=== PATIENT | female | born 1945 | race African-American/Black ===

== ENCOUNTER 2017-11-29 19:07 | Inpatient (IN) ==
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
[2017-11-29 20:08] LABS: Baso % (Auto) 0.7 % (0.0-2.0); Eos # (Auto) 0.1 th/mm3 (0.0-0.4); Eos % (Auto) 1.9 % (0.0-4.0); Hematocrit 45.5 % (35.0-46.0); Hemoglobin 14.8 gm/dL (11.6-15.3); Lymph # (Auto) 1.8 th/mm3 (1.0-4.8); Lymph % (Auto) 39.9 % (9.0-44.0); Mean Corpuscular HGB Conc 32.7 % (32.0-36.0); Mean Corpuscular Hemoglobin 30.2 pg (27.0-34.0); Mean Corpuscular Volume 92.6 fL (80.0-100.0); Mean Platelet Volume 8.5 fL (7.0-11.0); Mono # (Auto) 0.5 th/mm3 (0.0-0.9); Neut # (Auto) 2.1 th/mm3 (1.8-7.7); Neut % (Auto) 46.5 % (16.0-70.0); Platelet Count 141 th/mm3 (150-450); Red Blood Count 4.91 mil/mm3 (4.00-5.30); White Blood Count 4.6 th/mm3 (4.0-11.0)
--- NOTE | 2017-11-29 20:11 | CT ---
EXAM DATE: 11/29/2017 7:55 PM EDT AGE/SEX: 72 years / Female INDICATIONS: Altered mental status. CLINICAL DATA: This is the patient's initial encounter. Patient reports that signs and symptoms have been present for 1 day and indicates a pain score of 0/10. MEDICAL/SURGICAL HISTORY: None. None. RADIATION DOSE: 56.35 CTDI (mGy) COMPARISON: No prior exams available for comparison. TECHNIQUE: CT of the head without contrast. Using automated exposure control and adjustment of the mA and/or kV according to patient size, radiation dose was kept as low as reasonably achievable to ob tain optimal diagnostic quality images. DICOM format image data is available electronically for revi ew and comparison. FINDINGS: Cerebrum: There is mild generalized atrophy and ventricles are normal given the degree of atrophy. M ild periventricular white matter change is present. No midline shift, mass lesion, hemorrhage or acu te infarction. No extraaxial fluid collections are seen. Posterior Fossa: The cerebellum and brainstem demonstrate no acute abnormality. The 4th ventricle is midline. The cerebellopontine angle is within normal limits. Extracranial: The visualized sinuses are clear. Skull: The calvaria is intact. No skull fracture. CONCLUSION: 1. No acute intracranial abnormality is identified. 2. Nonacute findings include mild generalized atrophy and chronic periventricular white matter glynn brnia Electronically signed by: Elpidio Salmeron MD 11/29/2017 8:10 PM EDT
[2017-11-29 20:26] LABS: Albumin 3.8 g/dL (3.4-5.0); Anion Gap 10 meq/L (5-15); Aspartate Aminotransferase 25 U/L (15-37); Blood Urea Nitrogen 22 mg/dL (7-18); Calcium 10.1 mg/dL (8.5-10.1); Carbon Dioxide 27.2 meq/L (21.0-32.0); Chloride 104 meq/L (98-107); Glomerular Filtration Rate 56 mL/min (>89); Glucose,Random 124 mg/dL (74-106); Potassium 3.7 meq/L (3.5-5.1); Sodium 141 meq/L (136-145)
[2017-11-29 20:30] LABS: Bilirubin,Urine Negative (Negative); Clarity,Urine Hazy (Clear); Color,Urine Yellow (Yellw/Straw); Glucose,Urine (UA) Negative (Negative); Leukocyte Esterase,Urine Trace (Negative); Mucus,Urine Few /lpf (Occasional); Nitrite,Urine Negative (Negative); Squamous Epithelial Cell,Urine 2 /hpf (0-5)
[2017-11-29 20:35] LABS: Amphetamine Screen,Urine Neg (Neg); Barbiturate Screen,Urine Neg (Neg); Cannabinoid Screen,Urine Neg (Neg); Cocaine Screen,Urine Neg (Neg)
[2017-11-29 20:37] LABS: Alanine Aminotransferase 38 U/L (10-53); Alkaline Phosphatase 50 U/L (45-117); Total Protein 7.5 g/dL (6.4-8.2)
[2017-11-29 20:46] LABS: Opiate Screen,Urine Neg (Neg)
[2017-11-30] MEDS ORDERED: traZODone 50 MG Tablet PO PRN (07:44)
[2017-11-30] MEDS ORDERED: Aluminum/Magnesium/Simethacone Susp 30 ML UDC PO PRN (07:44)
[2017-11-30] MEDS ORDERED: Haloperidol Inj 5 MG/ML Ampul IM PRN (07:44)
[2017-11-30] MEDS ORDERED: LORazepam 1 MG Tablet PO PRN (07:44)
[2017-11-30] MEDS ORDERED: Senna/Docusate Sodium 8.6/50 MG Tablet PO SCH (09:00)
[2017-12-01 09:37] LABS: Calcium 9.1 mg/dL (8.5-10.1); Carbon Dioxide 27.7 meq/L (21.0-32.0); Chol/HDL Ratio 4.58 Ratio; HDL Cholesterol 53.4 mg/dL (40.0-60.0); Potassium 3.9 meq/L (3.5-5.1)
[2017-12-01] MEDS ORDERED: Acetaminophen 325 MG Tablet PO PRN (11:37)
[2017-12-01] MEDS ORDERED: Aluminum/Magnesium/Simethacone Susp 30 ML UDC PO PRN ×2 (11:37→11:56)
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
[2017-12-01] MEDS: Senna/Docusate Sodium 8.6/50 MG Tablet PO SCH (21:40)
[2017-12-02] MEDS: Senna/Docusate Sodium 8.6/50 MG Tablet PO SCH ×2 (08:29→21:40)
--- NOTE | 2017-12-02 11:57 | P.PNPSY ---
Subjective Remarks: This is a request for second opinion. Admission note was reviewed and I agree with the history. Patient was seen and case was discussed with nursing. Patient remains floridly psychotic. She is very religiously preoccupied and is responding to internal stimuli. She continues with bizarre jerking movements which she says is Ryan directing her to do so. There are no behavioral problems. She is social on the unit eating well Mental Status Examination Appearance: Disheveled Consciousness: Alert Orientation: Person, Place, Date/Time, Situation (Vaguely vaguely) Motor Activity: Other Speech: Pressured, Rapid, Other (Makes occasional grunting type noises) Language: Adequate, Other (Patient does make grunting noises) Fund of Knowledge: Inadequate Attention and Concentration: Easily distracted Memory: Impaired Mood: Angry, Irritable Affect: Other (Decreased range and intensity) Thought Process & Associations: Loose associations Thought Content: Other (Markedly disorganized) Hallucination Type: Auditory Delusion Type: Bizarre Suicidal Ideation: No Suicidal Plan: No Suicidal Intention: No Homicidal Ideation: No Homicidal Plan: No Homicidal Intention: No Insight: Poor Judgment: Poor Assessment and Plan - Assessment (1) Paranoid type schizophrenia, chronic state Code(s): F20.0 - Paranoid schizophrenia Status: Acute (2) Stereotypic movement disorder Code(s): F98.4 - Stereotyped movement disorders Status: Acute - Plan Plan: I agree with the first opinion to continue petition. Criteria include acute psychosis Justification for Continued Inpatient Stay: Patient would decompensate in a less restrictive setting
[2017-12-03] MEDS: Senna/Docusate Sodium 8.6/50 MG Tablet PO SCH ×2 (08:35→20:32)
--- NOTE | 2017-12-03 14:46 | P.PNPSY ---
Subjective Remarks: Patient seen in her room with nurse and medical student Clara, chart reviewed , patient continues noncompliant with medications continue to await [place] court hearing. Patient sitting in chair by window is quite disorganized and confusing statements she is tangential and circumstantial. He continues with the involuntary muscle movement and jerking movements along with the various verbalizations. She is otherwise been no behavioral problem. For now continue treatment Review of Systems All other systems reviewed negative except as stated in HPI Mental Status Examination Appearance: Disheveled Consciousness: Alert Orientation: Person, Place, Date/Time, Situation (Vaguely vaguely) Motor Activity: Other Speech: Pressured, Rapid, Other (Makes occasional grunting type noises) Language: Adequate, Other (Patient does make grunting noises) Fund of Knowledge: Inadequate Attention and Concentration: Easily distracted Memory: Impaired Mood: Angry, Irritable Affect: Other (Decreased range and intensity) Thought Process & Associations: Loose associations Thought Content: Other (Markedly disorganized) Hallucination Type: Auditory Delusion Type: Bizarre Suicidal Ideation: No Suicidal Plan: No Suicidal Intention: No Homicidal Ideation: No Homicidal Plan: No Homicidal Intention: No Insight: Poor Judgment: Poor Assessment and Plan - Assessment (1) Paranoid type schizophrenia, chronic state Code(s): F20.0 - Paranoid schizophrenia Status: Acute (2) Stereotypic movement disorder Code(s): F98.4 - Stereotyped movement disorders Status: Acute - Plan Plan: Patient continues psychotic with marked significant motor movements noted of upper and lower extremities and various barking verbalizations Justification for Continued Inpatient Stay: At this time patient would decompensate a place to a lower level of care Discharge Planning: To be determined
[2017-12-04] MEDS: Senna/Docusate Sodium 8.6/50 MG Tablet PO SCH ×2 (08:26→20:51)
--- NOTE | 2017-12-04 15:48 | P.PNPSY ---
Subjective Remarks: Patient seen in day room with medical saadia Elizabeth patient is sitting calmly watching TV. Chart reviewed. Patient still on no psychotropics due to lack of consent. Patient showing minimal movements with me and minimal verbalizations. Though medical student Clara states when she talked to her earlier today there are more significant amounts of movement and verbalizations. Otherwise patient showing no behavioral problems. Placement may become somewhat of an issue Review of Systems All other systems reviewed negative except as stated in HPI Mental Status Examination Appearance: Disheveled Consciousness: Alert Orientation: Person, Place, Date/Time, Situation (Vaguely vaguely) Motor Activity: Other Speech: Pressured, Rapid, Other (Makes occasional grunting type noises) Language: Adequate, Other (Patient does make grunting noises) Fund of Knowledge: Inadequate Attention and Concentration: Easily distracted Memory: Impaired Mood: Angry, Irritable Affect: Other (Decreased range and intensity) Thought Process & Associations: Loose associations Thought Content: Other (Markedly disorganized) Hallucination Type: Auditory Delusion Type: Bizarre Suicidal Ideation: No Suicidal Plan: No Suicidal Intention: No Homicidal Ideation: No Homicidal Plan: No Homicidal Intention: No Insight: Poor Judgment: Poor Assessment and Plan - Assessment (1) Paranoid type schizophrenia, chronic state Code(s): F20.0 - Paranoid schizophrenia Status: Acute (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
[2017-12-05] MEDS: Senna/Docusate Sodium 8.6/50 MG Tablet PO SCH ×2 (08:18→20:26)
--- NOTE | 2017-12-05 14:13 | P.PNPSY ---
Subjective Remarks: Patient seen in day room patient chart reviewed patient seen with floor staff. Patient continues on no psychotropics she remains calm although somewhat diffusely confused. During my interview with her she showed no abnormal motor movements or verbalizations. Patient scheduled for [facility] tomorrow. We also talked with patient's brother today who gave some sketchy history of past psychiatric problems going back a number of years and that these motor movements have been noted for a period of time recently. He is not certain as to the longevity of chronicity of her mental illness Review of Systems All other systems reviewed negative except as stated in HPI Mental Status Examination Appearance: Appropriate Consciousness: Alert Orientation: Person, Place, Date/Time, Situation (Vaguely vaguely) Motor Activity: Other Speech: Pressured, Rapid, Other (Makes occasional grunting type noises) Language: Adequate, Other (Patient does make grunting noises) Fund of Knowledge: Inadequate Attention and Concentration: Easily distracted Memory: Impaired Mood: Angry, Irritable Affect: Other (Decreased range and intensity) Thought Process & Associations: Loose associations Thought Content: Other (Markedly disorganized) Hallucination Type: Auditory Delusion Type: Bizarre Suicidal Ideation: No Suicidal Plan: No Suicidal Intention: No Homicidal Ideation: No Homicidal Plan: No Homicidal Intention: No Insight: Poor Judgment: Poor Assessment and Plan - Assessment (1) Paranoid type schizophrenia, chronic state Code(s): F20.0 - Paranoid schizophrenia Status: Acute (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 Patient scheduled for [facility] tomorrow Justification for Continued Inpatient Stay: At this time patient would decompensate if placed in a lower level of care Discharge Planning: To be determined
[2017-12-06] MEDS: Senna/Docusate Sodium 8.6/50 MG Tablet PO SCH (08:07)
--- NOTE | 2017-12-06 10:51 | P.DSPSY ---
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 Patient seen screen in the ED urine toxicology negative blood alcohol level negative. At the present time patient sitting in bed in her room counselor Brittany present throughout session. Patient is somewhat disheveled -[place]ian female appears somewhat younger than her stated age markedly disorganized and confused giving circumflex her to his statements about oriental orthodox focus. Feels that Ryan is talking to her. Who is a Ryan has gotten her 12 or 13 times she has had Ryan is babies. Patient though is also making grunting noises and tic-like movements about her mouth and had and also stereotypic type movements of her upper extremities with swinging and flailing activities and hitting her fist onto the mattress at times. I question with this is voluntary or involuntary. She states she uses makes her do it. She alludes to multiple past psychiatric hospitalizations. That it appears that she is only hospitalized a number of years ago and has worked through much of her adult life. In any event at this time patient does meet criteria for inpatient psychiatric stay under the [place] act I will do first opinion request second opinion. I feel she does not have capacity thus I will ask for health care surrogate and guardian advocate and second opinion petition supporting [place] act. With her degree of psychosis we will have hospitalist consult will us we have no adequate knowledge of any medical history she may Tobacco Use In Past 30 Days: No How Often Do You Have a Drink Containing Alcohol: 2 to 4 times a month Hospital Course: Patient's hospital course continue to show her delusions mostly fixated virtually on "Ryan" her verbalizations a motor movements continued intermittent but fairly intense. Patient was seen with her brother [place] today patient presented fairly well with occasional episodes of verbalizations and motor movements that at times appeared to be under some type of volitional control occurring when some perhaps uncomfortable topics being discussed. Patient's brother was quite emphatic that he did not want his sister to remain in the psychiatric unit. He wished her to be discharged today but he also was concerned about treatment. Though he wanted this to be done outpatient. Service Member Angela agreed patient to be discharged per court order straightening machine feeder Angela thus patient will be discharged today, no Rx by me, refer to [facility] act for further mental health assessment - Discharge Discharge Date: 12/06/17 - Discharge Diagnosis (1) Paranoid type schizophrenia, chronic state Diagnosis: Principal Code(s): F20.0 - Paranoid schizophrenia Status: Acute (2) Stereotypic movement disorder Diagnosis: Secondary Code(s): F98.4 - Stereotyped movement disorders Status: Acute Discharge Disposition: Home - Discharge Instructions Discharge Diet: Regular Diet Activities You Can Perform: Regular- No Restrictions - Discharge Time > 30 minutes Mental Status Examination Appearance: Appropriate Consciousness: Alert Orientation: Person, Place, Date/Time, Situation (Vaguely vaguely) Motor Activity: Other Speech: Pressured, Rapid, Other (Makes occasional grunting type noises) Language: Adequate, Other (Patient does make grunting noises) Fund of Knowledge: Inadequate Attention and Concentration: Easily distracted Memory: Impaired Mood: Angry, Irritable Affect: Other (Decreased range and intensity) Thought Process & Associations: Loose associations Thought Content: Other (Markedly disorganized) Hallucination Type: Auditory Delusion Type: Bizarre Suicidal Ideation: No Suicidal Plan: No Suicidal Intention: No Homicidal Ideation: No Homicidal Plan: No Homicidal Intention: No Insight: Poor Judgment: Poor Discharge/Advance Care Plan - Results Vital Signs: Last Vital Signs Temp 97.8 F 12/06/17 06:12 Pulse 73 12/06/17 06:12 Resp 16 12/06/17 06:12 BP 150/87 H 12/06/17 06:12 Pulse Ox 97 12/06/17 06:12 Lab Results: Laboratory Results Hemoglobin A1c 6.0 % (4.3-6.0) 07/14/18 08:23 Triglycerides 115 mg/dL (42-150) 12/01/17 08:23 Cholesterol 245 mg/dL (120-200) H 12/01/17 08:23 LDL Cholesterol, Calc 169 mg/dL (0-99) H 12/01/17 08:23 HDL Cholesterol 53.4 mg/dL (40.0-60.0) 12/01/17 08:23 TSH 3.090 uIU/mL (0.358-3.740) 11/29/17 19:30 Summary of Procedures: None done Imaging: ITS Impressions Head CT 11/29/17 19:29 CONCLUSION: 1. No acute intracranial abnormality is identified. 2. Nonacute findings include mild generalized atrophy and chronic periventricular white matter change. Pending Results: None - Medications Number of antipsychotic medications at discharge: 0 - Discharge Care Plan Goals to Promote Your Health: * To prevent worsening of your condition and complications * To maintain your health at the optimal level Directions to Meet Your Goals: Take your medications as prescribed Follow your dietary instruction Follow activity as directed Keep your appointments as scheduled Take your immunizations and boosters as scheduled If your symptoms worsen call your PCP, if no PCP go to Urgent Care Center or Emergency Room For 11/12 questions related to your inpatient stay or results of tests pending at discharge, please contact Dr. Elpidio Simpson MD at Smoking is Dangerous to Your Health. Avoid second hand smoking
== END 2017-12-06 11:20 | disposition home or self-care (01) ==
LOC: NEDAMB 19:07 → H260 11-30 10:55
PROVIDERS: ADMIT Psychiatry & Neurology Psychiatry; ATTEND Psychiatry & Neurology Psychiatry